=== PATIENT | female | born 1985 | race American Indian/Alaskan Native ===

== ENCOUNTER 2021-09-12 07:34 | Inpatient (IN) | payer SELFPAY ==
--- NOTE | 2021-09-12 07:58 | Emergency Department Report ---
HPI - General Chief Complaint: Arrhythmia/Palpitations Time Seen by Provider: 09/12/21 07:41 - [facility] HPI: Room 19 Patient is a 36-year-old female present with a chief complaint of chest pain shortness of breath. The patient states this evening she was at work when she developed chest pain and shortness of breath. Patient denies nausea/vomiting or diaphoresis. Patient describes her chest pain is sharp and grabbing in nature. Patient denies history of fever or cough. Patient denies receiving any Covid vaccinations. EMS was called on scene and found the patient in atrial fibrillation. Patient was administered aspirin 325 mg and a respiratory saline neb prior to arrival. Patient continues complaint of chest pain given a score 7-8/10 ED Past Medical Hx - Past Medical History Hx Asthma: Yes Additional medical history: Dysmenorrhea. Peripheral edema - Surgical History Additional Surgical History: Uterine polyp removal - Family History Family history: no significant - Social History Smoking Status: Never Smoker Substance Use Type: None (Denies illicit drug use), Alcohol (Occasional) ED Review of Systems ROS: Stated complaint: CHEST PAIN Other details as noted in HPI Constitutional: denies: fever Eyes: denies: eye pain ENT: denies: throat pain Respiratory: shortness of breath. denies: cough Cardiovascular: chest pain. denies: palpitations Endocrine: no symptoms reported Gastrointestinal: denies: vomiting Genitourinary: denies: dysuria Musculoskeletal: denies: back pain Neurological: denies: headache Physical Exam - Physical Exam Vital Signs: Vital Signs 09/12/21 07:42 Temperature 98.7 F Pulse Rate 106 H Respiratory 18 Rate Blood Pressure 115/87 [Right] O2 Sat by Pulse 100 Oximetry Physical Exam: GENERAL: The patient is well-developed well-nourished female lying on stretcher not appearing to be in acute distress. [] HEENT: Normocephalic. Atraumatic. Extraocular motions are intact. Patient has moist mucous membranes. NECK: Supple. Trachea midline CHEST/LUNGS: Clear to auscultation. There is no respiratory distress noted. HEART/CARDIOVASCULAR: Irregularly irregular. There is no tachycardia. There is no gallop rub or murmur. ABDOMEN: Abdomen is soft, nontender. Patient has normal bowel sounds. There is no abdominal distention. SKIN: There is no rash. There is trace bilateral lower extremity edema. There is no diaphoresis. NEURO: The patient is awake, alert, and oriented. The patient is cooperative. The patient has no focal neurologic deficits. The patient has normal speech. GCS 15 MUSCULOSKELETAL: There is no evidence of acute injury. ED Course Vital Signs 09/12/21 07:42 Temperature 98.7 F Pulse Rate 106 H Respiratory 18 Rate Blood Pressure 115/87 [Right] O2 Sat by Pulse 100 Oximetry - Reevaluation(s) Reevaluation #1: 09/12/21 09:14 Heart rate increased from 130-180 bpm. Diltiazem ordered Reevaluation #2: 09/12/21 09:25 Heart rate 98 after diltiazem ED Medical Decision Making - Lab Data Result diagrams: 09/12/21 08:12 09/12/21 08:12 Laboratory Tests 09/12/21 09/12/21 09/12/21 08:12 08:12 08:12 WBC 6.7 RBC 5.02 Hgb 12.3 Hct 37.4 MCV 75 L MCH 25 L MCHC 33 RDW 14.3 Plt Count 237 Lymph % (Auto) 29.1 [place] % (Auto) 7.9 H Eos % (Auto) 2.6 Baso % (Auto) 0.9 Lymph # (Auto) 2.0 [place] # (Auto) 0.5 Eos # (Auto) 0.2 Baso # (Auto) 0.1 Seg Neutrophils % 59.5 Seg Neutrophils # 4.0 PT 13.0 INR 0.88 APTT 31.9 Sodium 143 Potassium 3.4 L Chloride 108.1 H Carbon Dioxide 22 Anion Gap 16 BUN 7 Creatinine 0.7 Estimated GFR > 60 BUN/Creatinine Ratio 10 Glucose 101 H Calcium 8.5 Magnesium 1.80 Total Bilirubin 0.50 AST 18 ALT 23 Alkaline Phosphatase 73 Total Creatine Kinase 157 H CK-MB (CK-2) 1.5 CK-MB (CK-2) Rel Index 0.9 Troponin T < 0.010 NT-Pro-B Natriuret Pep 332.4 Total Protein 7.5 Albumin 3.4 L Albumin/Globulin Ratio 0.8 TSH Free T4 HCG, Qual 09/12/21 09/12/21 08:12 08:12 WBC RBC Hgb Hct MCV MCH MCHC RDW Plt Count Lymph % (Auto) [place] % (Auto) Eos % (Auto) Baso % (Auto) Lymph # (Auto) [place] # (Auto) Eos # (Auto) Baso # (Auto) Seg Neutrophils % Seg Neutrophils # PT INR APTT Sodium Potassium Chloride Carbon Dioxide Anion Gap BUN Creatinine Estimated GFR BUN/Creatinine Ratio Glucose Calcium Magnesium Total Bilirubin AST ALT Alkaline Phosphatase Total Creatine Kinase CK-MB (CK-2) CK-MB (CK-2) Rel Index Troponin T NT-Pro-B Natriuret Pep Total Protein Albumin Albumin/Globulin Ratio TSH 1.540 Free T4 1.51 H HCG, Qual Negative - EKG Data -: EKG Interpreted by Me Rate: tachycardia (101 bpm) - EKG Data When compared to previous EKG there are: previous EKG unavailable Interpretation: other (Atrial fibrillation at 101 bpm.) - Differential Diagnosis New onset atrial fibrillation Critical care attestation.: If time is entered above; I have spent that time in minutes in the direct care of this critically ill patient, excluding procedure time. ED Disposition Clinical Impression: New onset atrial fibrillation, Chest pain, Atrial fibrillation with rapid ventricular response, Hypokalemia Disposition: ADMITTED INPATIENT Is pt being admited?: Yes Does the pt Need Aspirin: Yes Condition: Fair Instructions: Nonspecific Chest Pain, Adult Time of Disposition: 09:26 (Hospitalist called (Dr. Edgar)) Heart Score - HEART Score History: Moderately suspicious EKG: Non-specific Age: < 45 Risk factors: 1-2 risk factors Troponin: < normal limit HEART Score: 3 - EKG Read Time Time EKG Completed: 08:31 EKG Read Time: 08:34
[2021-09-12 08:20] LABS: Basophils # (Auto) 0.1 K/mm3 (0.0-0.1); Basophils % (Auto) 0.9 % (0.0-1.8); Eosinophils # (Auto) 0.2 K/mm3 (0.0-0.4); Eosinophils % (Auto) 2.6 % (0.0-4.3); Hematocrit 37.4 % (30.3-42.9); Hemoglobin 12.3 gm/dl (10.1-14.3); Lymphocytes % (Auto) 29.1 % (13.4-35.0); Mean Corpuscular HGB Conc 33 % (30-34); Mean Corpuscular Volume 75 fl (79-97); Monocytes # (Auto) 0.5 K/mm3 (0.0-0.8); Monocytes % (Auto) 7.9 % (0.0-7.3); Platelet Count 237 K/mm3 (140-440); Red Blood Count 5.02 M/mm3 (3.65-5.03); Red Cell Distribution Width 14.3 % (13.2-15.2)
[2021-09-12 08:32] LABS: INR 0.88 (0.87-1.13)
[2021-09-12 08:33] LABS: Partial Thromboplastin Time 31.9 Sec. (24.2-36.6)
[2021-09-12 08:49] LABS: Alanine Aminotransferase 23 units/L (7-56); Albumin 3.4 g/dL (3.9-5); Blood Urea Nitrogen 7 mg/dL (7-17); Calcium 8.5 mg/dL (8.4-10.2); Creatine Kinase MB 1.5 ng/mL (0.0-4.0); Hemolysis Index 8
[2021-09-12 08:55] LABS: Free T4 (Free Thyroxine) 1.51 ng/dL (0.76-1.46)
[2021-09-12 09:09] LABS: BUN/Creatinine Ratio 10
[2021-09-12] MEDS ORDERED: dilTIAZem 25 MG/5 ML INJ IV ONE (09:14)
--- NOTE | 2021-09-12 09:18 | XRay Report ---
CHEST 1 VIEW 09/12/2021 8:12 AM INDICATION / CLINICAL INFORMATION: chest pain, shortness of breath. COMPARISON: None available. FINDINGS: SUPPORT DEVICES: None. HEART / MEDIASTINUM: No significant abnormality. LUNGS / PLEURA: No significant pulmonary or pleural abnormality. No pneumothorax. ADDITIONAL FINDINGS: No significant additional findings. IMPRESSION: 1. No acute findings. Signer Name: Fabián Barlow MD Signed: 09/12/2021 9:13 AM Workstation Name: [id number]
[2021-09-12] MEDS ORDERED: POTASSIUM CHLORIDE ER 20 MEQ TAB PO ONE (09:28)
[2021-09-12 09:30] LABS: Amphetamine Screen,Urine Negative; Benzodiazepines Screen,Urine Negative; Cannabinoid Screen,Urine Negative; Cocaine Screen,Urine Negative; Methadone Screen,Urine Negative; Opiate Screen,Urine Negative
--- NOTE | 2021-09-12 11:33 | History and Physical Report ---
History of Present Illness Date of examination: 09/12/21 Date of admission: 09/12/21 09:28 Chief complaint: Chest pain History of present illness: HPI: Patient is a 36-year-old female present with a chief complaint of chest pain shortness of breath. The patient states this evening she was at work when she developed chest pain and shortness of breath. Patient denies nausea/vomiting or diaphoresis. Patient describes her chest pain is sharp and grabbing in nature. Patient denies history of fever or cough. Patient denies receiving any Covid vaccinations. EMS was called on scene and found the patient in atrial fibrillation. Patient was administered aspirin 325 mg and a respiratory saline neb prior to arrival. Patient continued complaint of chest pain given a score 7-8/10 on arrival. Currently she was resting comfortably. Asymptomatic. Heart rate on bedside telemetry demonstrates rate controlled atrial fibrillation in the 90s. She denies any prior cardiac history. She denies knowing that she has history of high blood pressure. She states that she has had palpitations and chest pain like this 1 week prior to today. Today she actually was in no significant distress however EMS was concerned with atrial fibrillation noted on EKG. She denied any prior history of type 2 diabetes, stroke, vascular disease, congestive heart failure. She does state that she has had lower extremity edema for which her primary wrote an unspecified " water pill". She states that this medication keeps her lower extremity edema under control. She states that she will have relative bring medication in. Remainder of ROS negative except for stated above. 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 GENERAL: The patient appears normally developed, Vital signs as documented. HEAD: No signs of head trauma. EYES: Pupils are equal. Extraocular motions intact. EARS: Hearing grossly intact. MOUTH: Oropharynx is normal. NECK: No adenopathy, no JVD. CHEST: Chest with clear breath sounds bilaterally. No wheezes, rales, or rhonchi. CARDIAC: Regular rate and irregular rhythm. S1 and S2, without murmurs, butt ps, or rubs. VASCULAR: 1+ BL LE Edema. Peripheral pulses normal and equal in all extremities. ABDOMEN: Soft, non tender and non distended. No rebound or guarding, and no masses palpated. Bowel Sounds normal. MUSCULOSKELETAL: Good range of motion of all major joints. Extremities without clubbing, cyanosis or edema. NEUROLOGIC EXAM: Alert oriented x4. No focal sensory or strength deficits. PSYCHIATRIC: Mood normal. SKIN: detail exam as documented in skin assessment - Constitutional Vitals: Temp Pulse Resp BP Pulse Ox 98.7 F 84 17 132/97 99 09/12/21 07:42 09/12/21 09:45 09/12/21 09:45 09/12/21 09:45 09/12/21 09:45 HEART Score - HEART Score EKG: Non-specific Age: < 45 Risk factors: 1-2 risk factors Troponin: Troponin T < 0.010 ng/mL (0.00-0.029) 09/12/21 08:12 Troponin: < normal limit Results - Labs CBC & Chem 7: 09/12/21 08:12 09/12/21 08:12 Labs: Laboratory Last Values WBC 6.7 K/mm3 (4.5-11.0) 09/12/21 08:12 RBC 5.02 M/mm3 (3.65-5.03) 09/12/21 08:12 Hgb 12.3 gm/dl (10.1-14.3) 09/12/21 08:12 Hct 37.4 % (30.3-42.9) 09/12/21 08:12 MCV 75 fl (79-97) L 09/12/21 08:12 MCH 25 pg (28-32) L 09/12/21 08:12 MCHC 33 % (30-34) 09/12/21 08:12 RDW 14.3 % (13.2-15.2) 09/12/21 08:12 Plt Count 237 K/mm3 (140-440) 09/12/21 08:12 Lymph % (Auto) 29.1 % (13.4-35.0) 09/12/21 08:12 [place] % (Auto) 7.9 % (0.0-7.3) H 09/12/21 08:12 Eos % (Auto) 2.6 % (0.0-4.3) 09/12/21 08:12 Baso % (Auto) 0.9 % (0.0-1.8) 09/12/21 08:12 Lymph # (Auto) 2.0 K/mm3 (1.2-5.4) 09/12/21 08:12 [place] # (Auto) 0.5 K/mm3 (0.0-0.8) 09/12/21 08:12 Eos # (Auto) 0.2 K/mm3 (0.0-0.4) 09/12/21 08:12 Baso # (Auto) 0.1 K/mm3 (0.0-0.1) 09/12/21 08:12 Seg Neutrophils % 59.5 % (40.0-70.0) 09/12/21 08:12 Seg Neutrophils # 4.0 K/mm3 (1.8-7.7) 09/12/21 08:12 PT 13.0 Sec. (12.2-14.9) 09/12/21 08:12 INR 0.88 (0.87-1.13) 09/12/21 08:12 APTT 31.9 Sec. (24.2-36.6) 09/12/21 08:12 Sodium 143 mmol/L (137-145) 09/12/21 08:12 Potassium 3.4 mmol/L (3.6-5.0) L 09/12/21 08:12 Chloride 108.1 mmol/L (98-107) H 09/12/21 08:12 Carbon Dioxide 22 mmol/L (22-30) 09/12/21 08:12 Anion Gap 16 mmol/L 09/12/21 08:12 BUN 7 mg/dL (7-17) 09/12/21 08:12 Creatinine 0.7 mg/dL (0.6-1.2) 09/12/21 08:12 Estimated GFR > 60 ml/min 09/12/21 08:12 BUN/Creatinine Ratio 10 % 09/12/21 08:12 Glucose 101 mg/dL (65-100) H 09/12/21 08:12 Calcium 8.5 mg/dL (8.4-10.2) 09/12/21 08:12 Magnesium 1.80 mg/dL (1.7-2.3) 09/12/21 08:12 Total Bilirubin 0.50 mg/dL (0.1-1.2) 09/12/21 08:12 AST 18 units/L (5-40) 09/12/21 08:12 ALT 23 units/L (7-56) 09/12/21 08:12 Alkaline Phosphatase 73 units/L (35-129) 09/12/21 08:12 Total Creatine Kinase 157 units/L (30-135) H 09/12/21 08:12 CK-MB (CK-2) 1.5 ng/mL (0.0-4.0) 09/12/21 08:12 CK-MB (CK-2) Rel Index 0.9 (0-4) 09/12/21 08:12 Troponin T < 0.010 ng/mL (0.00-0.029) 09/12/21 08:12 NT-Pro-B Natriuret Pep 332.4 pg/mL (0-450) 09/12/21 08:12 Total Protein 7.5 g/dL (6.3-8.2) 09/12/21 08:12 Albumin 3.4 g/dL (3.9-5) L 09/12/21 08:12 Albumin/Globulin Ratio 0.8 % 09/12/21 08:12 TSH 1.540 mlU/mL (0.270-4.200) 09/12/21 08:12 Free T4 1.51 ng/dL (0.76-1.46) H 09/12/21 08:12 HCG, Qual Negative (Negative) 09/12/21 08:12 Urine Opiates Screen Negative 09/12/21 Unknown Urine Methadone Screen Negative 09/12/21 Unknown Ur Barbiturates Screen Negative 09/12/21 Unknown Ur Phencyclidine Scrn Negative 09/12/21 Unknown Ur Amphetamines Screen Negative 09/12/21 Unknown U Benzodiazepines Scrn Negative 09/12/21 Unknown Urine Cocaine Screen Negative 09/12/21 Unknown U Marijuana (THC) Screen Negative 09/12/21 Unknown Drugs of Abuse Note Disclamer 09/12/21 Unknown Assessment and Plan Assessment and plan: #Atrial fibrillation with rapid ventricular response now rate controlled -Ventricular rate as high as 174, currently in 80s -ED administered diltiazem 20 mg x 1 -[id number]: 2 -Continuous telemetry monitoring -Echo ordered -Thyroid panel -Heparin drip Metoprolol 25 p.o. twice daily Lopressor as needed heart rate greater than 110 Cardiology consult #New onset atrial fibrillation -No prior history of atrial fibrillation #Chest pain -Likely secondary to atrial fibrillation #Hypokalemia -Some suspicion that patient's water pill is causing this. Replace as needed Follow on a.m. BMP #Juvenile asthma -Does not take any medication for this anymore #Dysmenorrhea -Chronic #Advance care planning Disease education conducted, care plan discussed, diagnoses discussed, prognosis discussed, patient is full code, patient acknowledges understanding and agree with care plan, +30 minutes.
[2021-09-12] MEDS ORDERED: HEPARIN 10,000 UNITS/10 ML VIAL IV PRN (12:00)
[2021-09-12] MEDS ORDERED: ACETAMINOPHEN 325 MG TAB PO PRN (13:00)
[2021-09-12 13:09] LABS: Hematocrit 40.1 % (30.3-42.9); Hemoglobin 12.5 gm/dl (10.1-14.3)
[2021-09-12] MEDS: METOPROLOL TARTRATE 25 MG TAB PO SCH ×3 (13:13→22:52)
[2021-09-12 13:22] LABS: INR 0.88 (0.87-1.13); Partial Thromboplastin Time 29.9 Sec. (24.2-36.6)
[2021-09-12] MEDS ORDERED: oxyCODONE /ACETAMINOPHEN 5-325MG TAB PO PRN (13:30)
[2021-09-12 13:34] LABS: Chol/HDL Ratio 2.63 %
[2021-09-12] MEDS ORDERED: METOPROLOL TARTRATE 5 MG/5 ML INJ IV PRN (14:00)
[2021-09-12] MEDS ORDERED: ONDANSETRON 4 MG/2 ML INJ IV PRN (14:00)
[2021-09-12] MEDS: HEPARIN/ 0.45% NACL DRIP 25,000 UNIT/500 ML BAG IV SCH (16:12)
--- NOTE | 2021-09-12 17:48 | Electrocardiograph Report ---
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
--- NOTE | 2021-09-12 17:52 | Consultation ---
History of Present Illness Consult date: 09/12/21 Requesting physician: RADHA DUDLEY Consult reason: atrial fibrillation History of present illness: Patient is a 36-year-old female with a past medical history of asthma and chronic leg edema who presented to the ED with a complaint of shortness of breath and palpitations x1 day. Patient reports that she was at work when she developed shortness of breath, lightheadedness, and palpitation. EMS was notified and found the patient in A. fib with RVR and transported patient to [facility]. Patient reports that she had an episode such as this previously happen to her in the past about 2 weeks ago. She thought that it was her asthma acting up and took an albuterol inhaler with no relief. She said at that time the palpitations went away quickly however during this current episode the sensations did not cease until she received IV Cardizem in the ED. Patient denies any other symptoms including chest pain nausea vomiting or diaphoresis. At time of interview patient denies any symptoms. Patient is previously unknown by our practice. Cardiology consulted for A. fib with RVR Past History Past Medical History: hypertension, other (Lower extremity edema, juvenile asthma) Past Surgical History: No surgical history Social history: no significant social history Family history: CAD, diabetes, hypertension Medications and Allergies Allergies Allergy/AdvReac Type Severity Reaction Status Date / Time Sulfa (Sulfonamide Allergy Severe Anaphylaxis Verified 09/12/21 14:06 Antibiotics) Home Medications Medication Instructions Recorded Confirmed Last Taken Type Cetirizine HCl [Zyrtec 10mg tab] 10 mg PO DAILY 09/12/21 09/12/21 Unknown History Dulaglutide [Trulicity] 1.5 mg SQ DAILY 09/12/21 09/12/21 3 Weeks Ago History ~08/22/21 1 Montelukast [Singulair] 10 mg PO QPM 09/12/21 09/12/21 Unknown History Norethindrone-Ethinyl Estrad 1 each PO DAILY 09/12/21 09/12/21 Unknown History [Pirmella 1-35 28 Tablet] Propranolol HCl [Inderal LA] 160 mg PO DAILY 09/12/21 09/12/21 Unknown History Active Meds: Active Medications Acetaminophen (Acetaminophen 325 Mg Tab) 650 mg PO Q4H PRN PRN Reason: Pain MILD(1-3)/Fever >100.5/DAVIS Heparin Sodium (Porcine) (Heparin 10,000 Units/10 Ml Vial) 5,000 unit IV Q6H PRN PRN Reason: Anti-Xa Assay < 0.1 units/ml Heparin Sodium/Sodium Chloride (Heparin/ 0.45% Nacl-25,000 Unit/500 Ml) 25,000 unit in 500 mls @ 30 mls/hr IV TITR [facility]; Protocol Last Admin: 09/12/21 16:12 Dose: 1,500 units/hr, 30 mls/hr Documented by: Metoprolol Tartrate (Metoprolol Tartrate 25 Mg Tab) 25 mg PO BID [facility] Last Admin: 09/12/21 13:31 Dose: Not Given Documented by: Metoprolol Tartrate (Metoprolol Tartrate 5 Mg/5 Ml Inj) 5 mg IV Q4HR PRN PRN Reason: HR > 110, hold for sbp < 100 Ondansetron HCl (Ondansetron 4 Mg/2 Ml Inj) 4 mg IV Q8H PRN PRN Reason: Nausea And Vomiting Oxycodone/Acetaminophen (Oxycodone /Acetaminophen 5-325mg Tab) 1 tab PO Q6HR PRN PRN Reason: Pain, Moderate (4-6) Sodium Chloride (Sodium Chloride 0.9% 10 Ml Flush Syringe) 10 ml IV BID [facility] Sodium Chloride (Sodium Chloride 0.9% 10 Ml Flush Syringe) 10 ml IV PRN PRN PRN Reason: LINE FLUSH Review of Systems Constitutional: no weight loss, no weight gain Ears, nose, mouth and throat: no nasal congestion, no nasal discharge, no sinus pressure Cardiovascular: palpitations, rapid/irregular heart beat, lightheadedness, shortness of breath, no orthopnea Respiratory: shortness of breath, no cough, no cough with sputum Gastrointestinal: no nausea, no vomiting, no diarrhea Musculoskeletal: no neck stiffness, no neck pain Integumentary: no rash, no pruritis, no sores Neurological: no head injury, no transient paralysis Psychiatric: no anxiety, no memory loss Endocrine: no cold intolerance, no heat intolerance Hematologic/Lymphatic: no easy bruising, no easy bleeding Physical Examination Vital Signs Temp Pulse Resp BP Pulse Ox 98.7 F 106 H 18 115/87 100 09/12/21 07:42 09/12/21 07:42 09/12/21 07:42 09/12/21 07:42 09/12/21 07:42 General appearance: no acute distress HEENT: Positive: PERRL Cardiac: Positive: irregularly irregular Lungs: Positive: clear to auscultation, Normal Breath Sounds Neuro: Positive: Grossly Intact Abdomen: Positive: Soft, Active Bowel Sounds Skin: Negative: Rash, Suspicious Lesions, Ulceration Extremities: Present: upper extr. pulses, lower extr. pulses, edema Results 09/12/21 13:00 09/12/21 08:12 Cardiac Enzymes 09/12/21 Range/Units 08:12 AST 18 (5-40) units/L CK-MB (CK-2) 1.5 (0.0-4.0) ng/mL Coagulation 09/12/21 09/12/21 Range/Units 08:12 13:00 PT 13.0 13.0 (12.2-14.9) Sec. INR 0.88 0.88 (0.87-1.13) APTT 31.9 29.9 (24.2-36.6) Sec. Lipids 09/12/21 Range/Units 13:00 Triglycerides 69 (2-149) mg/dL Cholesterol 145 (50-199) mg/dL HDL Cholesterol 55 (40-59) mg/dL Cholesterol/HDL Ratio 2.63 % CBC 09/12/21 09/12/21 Range/Units 08:12 13:00 WBC 6.7 (4.5-11.0) K/mm3 RBC 5.02 (3.65-5.03) M/mm3 Hgb 12.3 12.5 (10.1-14.3) gm/dl Hct 37.4 40.1 (30.3-42.9) % Plt Count 237 254 (140-440) K/mm3 Lymph # (Auto) 2.0 (1.2-5.4) K/mm3 [place] # (Auto) 0.5 (0.0-0.8) K/mm3 Eos # (Auto) 0.2 (0.0-0.4) K/mm3 Baso # (Auto) 0.1 (0.0-0.1) K/mm3 Comprehensive Metabolic Panel 09/12/21 Range/Units 08:12 Sodium 143 (137-145) mmol/L Potassium 3.4 L (3.6-5.0) mmol/L Chloride 108.1 H (98-107) mmol/L Carbon Dioxide 22 (22-30) mmol/L BUN 7 (7-17) mg/dL Creatinine 0.7 (0.6-1.2) mg/dL Glucose 101 H (65-100) mg/dL Calcium 8.5 (8.4-10.2) mg/dL AST 18 (5-40) units/L ALT 23 (7-56) units/L Alkaline Phosphatase 73 (35-129) units/L Total Protein 7.5 (6.3-8.2) g/dL Albumin 3.4 L (3.9-5) g/dL - Imaging and Cardiology Echo: pending EKG interpretations - Telemetry EKG Rhythm: Atrial Fibrillation - EKG Supraventricular dysrhythmia: atrial fibrillation Assessment and Plan EKG following administration of Cardizem shows A. fib rate 101 no acute ischemic changes. Troponins negative x1 Agree with metoprolol for rate control Patient currently anticoagulated on heparin Echo pending Patient for Lexiscan stress test in the a.m. N.p.o. after midnight Patient seen in conjunction with Dr. Andrade who agrees with plan of care. We will continue to follow - Patient Problems (1) Obesity Current Visit: Yes Status: Acute (2) Atrial fibrillation with rapid ventricular response Current Visit: Yes Status: Acute (3) New onset atrial fibrillation Current Visit: Yes Status: Acute
[2021-09-13 05:00] LABS: BUN/Creatinine Ratio 10; Blood Urea Nitrogen 8 mg/dL (7-17); Calcium 8.4 mg/dL (8.4-10.2); Hemolysis Index 0
[2021-09-13] MEDS ORDERED: REGADENOSON 0.4 MG/5 ML INJ IV ONE (06:47)
[2021-09-13] MEDS: HEPARIN/ 0.45% NACL DRIP 25,000 UNIT/500 ML BAG IV SCH (08:15)
[2021-09-13] MEDS: METOPROLOL TARTRATE 25 MG TAB PO SCH (11:10)
--- NOTE | 2021-09-13 11:46 | Discharge Summary ---
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 The patient states this evening she was at work when she developed chest pain and shortness of breath. Patient denies nausea/vomiting or diaphoresis. Patient describes her chest pain is sharp and grabbing in nature. Patient denies history of fever or cough. Patient denies receiving any Covid vaccinations. EMS was called on scene and found the patient in atrial fibrillation. Patient was administered aspirin 325 mg and a respiratory saline neb prior to arrival. Patient continued complaint of chest pain given a score 7-8/10 on arrival. Currently she was resting comfortably. Asymptomatic. Heart rate on bedside telemetry demonstrates rate controlled atrial fibrillation in the 90s. She denies any prior cardiac history. She denies knowing that she has history of high blood pressure. She states that she has had palpitations and chest pain like this 1 week prior to today. Today she actually was in no significant distress however EMS was concerned with atrial fibrillation noted on EKG. She denied any prior history of type 2 diabetes, stroke, vascular disease, congestive heart failure. She does state that she has had lower extremity edema for which her primary wrote an unspecified " water pill". She states that this medication keeps her lower extremity edema under control. She states that she will have relative bring medication in. Remainder of ROS negative except for stated above. Hospital course: Patient was admitted for atrial fibrillation with rapid ventricular response. Patient has never had atrial fibrillation in the past. In the emergency department she was given 20 mg diltiazem which controlled her rate. She was subsequently started on metoprolol 25 p.o. twice a day as well as a heparin drip due to her [id number] score of 2. Thyroid panel demonstrated normal TSH of 1.54 however is slightly elevated free T4 of 1.51. We would advise you follow up with your primary care doctor for a repeat test in 4-6 weeks. cardiology completed cardiac stress test on patient. Stress test was negative for ischemia. Patient will be discharged with metoprolol and DOAC. Unfortunately patient cannot afford Eliquis so will send home on Xarelto with coupon. She is advised to establish with a primary care doctor and follow-up in 3 to 5 days. She is also advised to follow-up with cardiology. She was given contact information for [facility] to see Dr. Andrade in his office. Dr. Andrade [facility] Address: [facility] , [place] [address] Assessment and plan #Atrial fibrillation with rapid ventricular response now rate controlled -Ventricular rate as high as 174, currently in 80s -ED administered diltiazem 20 mg x 1 -[id number]: 2 -Continuous telemetry monitoring -Echo ordered -Thyroid panel -Heparin drip Metoprolol 25 p.o. twice daily Lopressor as needed heart rate greater than 110 Cardiology consult #New onset atrial fibrillation -No prior history of atrial fibrillation #Chest pain -Likely secondary to atrial fibrillation #Hypokalemia -Some suspicion that patient's water pill is causing this. Replace as needed Follow on a.m. BMP #Juvenile asthma -Does not take any medication for this anymore #Dysmenorrhea -Chronic #Advance care planning Disease education conducted, care plan discussed, diagnoses discussed, prognosis discussed, patient is full code, patient acknowledges understanding and agree with care plan, +30 minutes. Disposition: HOME / SELF CARE / HOMELESS Final Discharge Diagnosis (Prints w/discharge instructions): Atrial Fibrillation with Rapid Ventricular Response Time spent for discharge: 35 - Discharge Diagnoses (1) Atrial fibrillation with rapid ventricular response Status: Acute (2) Chest pain Status: Acute (3) Hypokalemia Status: Acute (4) New onset atrial fibrillation Status: Acute (5) Obesity Status: Acute Core Measure Documentation - Palliative Care Palliative Care/ Comfort Measures: Not Applicable - Core Measures Any of the following diagnoses?: none Exam - Physical Exam Narrative exam: Physical Exam: VITAL SIGNS: Reviewed. GENERAL: The patient appears normally developed, Vital signs as documented. HEAD: No signs of head trauma. EYES: Pupils are equal. Extraocular motions intact. EARS: Hearing grossly intact. MOUTH: Oropharynx is normal. NECK: No adenopathy, no JVD. CHEST: Chest with clear breath sounds bilaterally. No wheezes, rales, or rhonchi. CARDIAC: Regular rate and irregular rhythm. S1 and S2, without murmurs, gallops, or rubs. VASCULAR: 1+ BL LE Edema. Peripheral pulses normal and equal in all extremities. ABDOMEN: Soft, non tender and non distended. No rebound or guarding, and no masses palpated. Bowel Sounds normal. MUSCULOSKELETAL: Good range of motion of all major joints. Extremities without clubbing, cyanosis or edema. NEUROLOGIC EXAM: Alert oriented x4. No focal sensory or strength deficits. PSYCHIATRIC: Mood normal. SKIN: detail exam as documented in skin assessment - Constitutional Vitals: Temp Pulse Resp BP Pulse Ox 98.2 F 72 18 148/108 100 09/13/21 07:32 09/13/21 07:55 09/13/21 07:32 09/13/21 07:32 09/13/21 07:55 Plan Activity: advance as tolerated Weight Bearing Status: Weight Bear as Tolerated Diet: low fat, low cholesterol, low salt Follow up with: PRIMARY CARE, [Primary Care Provider] - 3-5 Days Prescriptions: Metoprolol [Lopressor TAB] 25 mg PO BID 30 Days #60 tablet Rivaroxaban [Xarelto] 20 mg PO QDAY 30 Days #30 tab
[2021-09-13] MEDS ORDERED: hydrALAZINE 20 MG/1 ML INJ IV ONE ×3 (14:39→15:15)
--- NOTE | 2021-09-13 15:00 | Progress Note ---
Assessment and Plan Echo 09/12/2021-EF 50 to 55%, normal LV systolic function, LV diastolic dysfunction indeterminate. No pericardial effusion Lexiscan MPI stress test 09/13/2021-preliminary results are negative for ischemia Patient cardiac status is stable. Patient may be discharged from a cardiac standpoint. Patient should be discharged on Eliquis for anticoagulation and metoprolol for rate control. Patient has a follow-up appointment with Dr. Andrade, [facility] specialists, on10/05/2021 at 1:30pm at [facility] location. Phone [phone] Patient seen in conjunction with Dr. Andrade who agrees with plan of care. We will sign off - Patient Problems (1) Obesity Current Visit: Yes Status: Acute (2) Atrial fibrillation with rapid ventricular response Current Visit: Yes Status: Acute (3) New onset atrial fibrillation Current Visit: Yes Status: Acute Subjective Date of service: 09/13/21 Principal diagnosis: Afib w RVR Interval history: Patient for stress test this a.m. Patient has no cardiac complaints Sinus 80 with PVCs on monitor Objective Vital Signs Temp Pulse Resp BP BP Pulse Ox 09/13/21 14:27 154/110 09/13/21 11:06 98.9 F 78 18 152/101 100 09/13/21 07:55 72 100 09/13/21 07:32 98.2 F 72 18 148/108 100 09/13/21 05:31 97.9 F 75 16 112/69 98 09/12/21 22:44 98.1 F 70 16 129/85 100 09/12/21 22:00 79 09/12/21 21:53 99 09/12/21 21:45 98.1 F 80 18 142/74 99 09/12/21 21:01 108 H 10 L 138/100 100 09/12/21 20:31 99 H 27 H 147/99 98 09/12/21 20:01 95 H 14 136/91 100 09/12/21 19:31 97 H 20 131/87 99 09/12/21 19:01 91 H 18 166/99 76 L 09/12/21 18:31 93 H 15 119/98 79 L 09/12/21 17:01 94 H 12 132/96 92 09/12/21 16:31 85 11 L 105/54 97 10/27/21 16:01 87 11 L 105/54 100 09/12/21 15:31 82 21 105/54 100 09/12/21 15:01 79 19 105/54 100 - Physical Examination General: No Apparent Distress HEENT: Positive: PERRL Cardiac: Positive: Reg Rate and Rhythm Lungs: Positive: clear to auscultation, Normal Breath Sounds Neuro: Positive: Grossly Intact Abdomen: Positive: Soft, Active Bowel Sounds Skin: Negative: Rash, Suspicious Lesions, Ulceration Extremities: Present: upper extr. pulses, lower extr. pulses, edema - Labs and Meds Comprehensive Metabolic Panel 09/13/21 Range/Units 04:19 Sodium 141 (137-145) mmol/L Potassium 4.4 D (3.6-5.0) mmol/L Chloride 105.1 (98-107) mmol/L Carbon Dioxide 23 (22-30) mmol/L BUN 8 (7-17) mg/dL Creatinine 0.8 (0.6-1.2) mg/dL Glucose 93 (65-100) mg/dL Calcium 8.4 (8.4-10.2) mg/dL - Imaging and Cardiology EKG: report reviewed Echo: report reviewed - Telemetry EKG Rhythm: Sinus Rhythm - EKG Sinus rhythms and dysrhythmias: sinus rhythm Supraventricular dysrhythmia: atrial fibrillation
[2021-09-13 15:57] VITALS: BP 149/94
== END 2021-09-13 16:24 | disposition home or self-care (01) | DRG 309 ==
LOC: ED 07:34 → 4A 09:28 → OBSVTOIN 11:46 → 4A 17:32
PROVIDERS: ADMIT Internal Medicine; ATTEND Internal Medicine
DX: I48.91 Unspecified atrial fibrillation (principal); Z68.42 Body mass index [BMI] 45.0-49.9, adult; E66.9 Obesity, unspecified; E87.6 Hypokalemia; J45.998 Other asthma; N94.6 Dysmenorrhea, unspecified; Z83.3 Family history of diabetes mellitus; Z82.49 Family history of ischemic heart disease and other diseases of the circulatory system; Z20.822 Contact with and (suspected) exposure to COVID-19
CPT/HCPCS: 36415; 71045; 78452; 80048; 80053; 80061; 80307; 82550; 82553; 83735; 83880; 84439; 84443; 84484; 84703; 85014; 85018; 85025; 85049; 85520; 85610; 85730; 93005; 93017; 93306; G0378; A9502; J0360; J1644; J2785